=== PATIENT | male | born 1985 | race Caucasian/White ===

== ENCOUNTER 2019-11-09 11:28 | Emergency (ER) | payer SELFPAY ==
[~2019-11-09] VITALS: Ht 188 cm; Wt 86.4 kg
[2019-11-09 11:56] VITALS: Ht 188 cm; Wt 86.4 kg
[2019-11-09 12:16] LABS: BASOPHILS 0.2 % (0-2); EOSINOPHILS 0 % (0-7); HEMATOCRIT 44.6 % (42.0-54.0); HEMOGLOBIN 15.5 g/dL (13.5-17.5); IMMATURE GRANULOCYTES 0.2 % (0-5); LYMPHOCYTES 15.5 % (15-50); MCH 31.1 pg (26.0-34.0); MCHC 34.8 g/dL (31.0-37.0); MCV 89.4 fL (80.0-100.0); MEAN PLATELET VOLUME 9.8 fL (7.4-10.4); MONOCYTES 3.6 % (2-11); NEUTROPHILS 80.5 % (40-80); PLATELET COUNT 321 10x3/uL (130-400); RBC 4.99 10x6/uL (4.20-6.10); RDW 12.2 % (11.5-14.5); WBC 9.2 10x3/uL (4.8-10.8)
[2019-11-09 12:22] LABS: CALC OSMOLALITY 270 mosm/kg (275-300); CALCIUM 10.4 mg/dL (8.5-10.1); CARBON DIOXIDE 27.1 mmol/L (21.0-32.0); CHLORIDE - SERUM 98 mmol/L (98-107); CREATININE - SERUM 1.1 mg/dL (0.6-1.3); GLUCOSE 125 mg/dL (74-106); POTASSIUM - SERUM 3.9 mmol/L (3.5-5.1); SODIUM 134 mmol/L (136-145); UREA NITROGEN 17 mg/dL (7-18); eGFR NON AFRICAN AMERICAN 82 mL/min (90-120)
[2019-11-09 12:31] LABS: ALBUMIN 4.6 g/dL (3.4-5.0); ALKALINE PHOSPHATASE 74 U/L (30-120); ALT (SGPT) 38 U/L (10-68); AMYLASE - SERUM 55 U/L (25-115); BILIRUBIN - TOTAL 0.61 mg/dL (0.2-1.3); LIPASE 73 U/L (73-393); PROTEIN - SERUM 9.3 g/dL (6.4-8.2); TROPONIN-I < 0.017 ng/mL (0.000-0.060)
[2019-11-09] MEDS ORDERED: ZOFRAN ODT4 MG/UDTAB PO (15:25)
[2019-11-09 15:52] VITALS: BP 146/63
== END 2019-11-09 15:50 | disposition home or self-care (01) ==
LOC: D.ER 11:28
PROVIDERS: Family Medicine
DX: R10.9 Unspecified abdominal pain (principal); R11.2 Nausea with vomiting, unspecified; A05.9 Bacterial foodborne intoxication, unspecified